=== PATIENT | male | born 1990 | race Caucasian/White ===

== ENCOUNTER 2016-10-27 09:46 | Day surgery (SDC) | payer OTHER ==
[2016-10-27 10:50] VITALS: RESP 19
[2016-10-27] MEDS ORDERED: Propofol 10 mg/ml Inj (20 ML) ONE ×2 (11:25→11:42)
[2016-10-27] MEDS ORDERED: Lidocaine Hydrochloride 5 ML INJ ONE (11:41)
[2016-10-27 13:04] VITALS: BP 101/59; PULSE 72; TEMP 97.9; O2SAT 100
== END 2016-10-27 13:00 | disposition home or self-care (01) ==
LOC: C.ENDO 09:46
PROVIDERS: ATTEND Internal Medicine Gastroenterology
DX: K52.9 Noninfective gastroenteritis and colitis, unspecified (principal); K63.89 Other specified diseases of intestine; K62.89 Other specified diseases of anus and rectum; K29.50 Unspecified chronic gastritis without bleeding; K22.10 Ulcer of esophagus without bleeding; K25.9 Gastric ulcer, unspecified as acute or chronic, without hemorrhage or perforation; K44.9 Diaphragmatic hernia without obstruction or gangrene; K59.00 Constipation, unspecified; R56.9 Unspecified convulsions; Z98.890 Other specified postprocedural states; Z79.899 Other long term (current) drug therapy
CPT/HCPCS: 43239; 45380; 88305; J2704